=== PATIENT | female | born 1970 | race African-American/Black ===

== ENCOUNTER 2018-10-29 07:08 | Day surgery (SDC) | payer BC ==
[2018-10-20 10:35] VITALS: BMI 17.6
[2018-10-29] MEDS ORDERED: PROPOFOL 20 ML ONE ×2 (07:52)
[2018-10-29] MEDS ORDERED: LIDOCAINE HCL/PF 2% SDV 5ML VIAL ONE (07:52)
[2018-10-29 10:06] VITALS: TEMP 98.3
[2018-10-29 10:11] VITALS: PULSE 70
[2018-10-29 10:15] VITALS: BP 110/50
== END 2018-10-29 09:30 | disposition home or self-care (01) ==
LOC: FASU-ENDO 07:08
PROVIDERS: ATTEND Internal Medicine Gastroenterology
PROC: 0DJD8ZZ Inspection of Lower Intestinal Tract, Via Natural or Artificial Opening Endoscopic (ICD-10-PCS; principal; 2018-10-29 08:29)
DX: Z12.11 Encounter for screening for malignant neoplasm of colon (principal); Z80.0 Family history of malignant neoplasm of digestive organs
CPT/HCPCS: 84703